=== PATIENT | female | born 1940 | race Caucasian/White ===

== ENCOUNTER 2024-07-17 14:56 | Emergency (ER) | payer MEDICARE ==
[2024-07-17 17:18] VITALS: TEMP 99.4
[2024-07-17 17:43] LABS: Appearance Cloudy (Clear); Bacteria Moderate /HPF (None Seen); Bilirubin Negative (Negative); Blood Small (Negative); Epithelial Cells Moderate /HPF (None Seen); Glucose, Urine Negative (Negative); Hyaline Casts NONE SEEN /LPF (0-2); Ketones 40 (Negative); Leukocyte Esterase Small (Negative); Nitrite Negative (Negative); Ph 5.5 (4.6-8.0); Protein,Urine Dip Negative (Negative); Specific Gravity 1.015 (1.005-1.030); Urobilinogen 0.2 mg/dL (0.2)
--- NOTE | 2024-07-17 17:44 | ERPHSYRPT ---
- History of Present Illness Time Seen by Provider: 07/17/24 17:32 Source: patient Exam Limitations: no limitations Patient Subjective Stated Complaint: PT HERE FOR PAIN TO RIGHT LOWER BACK SINCE FRIDAY, SHE DENIES ANY INJURY AND HAS NOT HAD ANY PAIN MEDS, Triage Nursing Assessment: PT ALERT, WALKED TO ROOM. GAIT STEADY. RESP EASY, SKIN W/D/P. ABD SOFT, NO EDEMA NOTED, MOVES ALL EXT WELL Physician History: Since yesterday pt has had right hip pain and right lower back pain which is worse with walking; denies trauma, numbness, fever, abdominal pain, chest pain. Allergies/Adverse Reactions: amoxicillin [From Augmentin] Allergy (Verified 07/17/24 17:08) clavulanic acid [From Augmentin] Allergy (Verified 07/17/24 17:08) Hx Tetanus, Diphtheria Vaccination/Date Given: No Hx Influenza Vaccination/Date Given: No Hx Pneumococcal Vaccination/Date Given: No Immunizations Up to Date: Yes Travel Risk - International Travel Have you traveled outside of the country in past 3 weeks: No - Emerging Infectious Disease Are you exhibiting symptoms associated with any current EIDs: No - Review of Systems Constitutional: No Fever Respiratory: No Dyspnea Cardiac: No Chest Pain Abdominal/Gastrointestinal: No Abdominal Pain, No Vomiting, No Diarrhea Musculoskeletal: Back Pain, Joint Pain (right hip) - Past Medical History Pertinent Past Medical History: No Neurological History: No Pertinent History ENT History: No Pertinent History Cardiac History: No Pertinent History Respiratory History: No Pertinent History Endocrine Medical History: No Pertinent History Musculoskeletal History: No Pertinent History GI Medical History: Polyps History: No Pertinent History Psycho-Social History: No Pertinent History Female Reproductive Disorders: No Pertinent History - Past Surgical History Past Surgical History: Yes Neuro Surgical History: No Pertinent History Cardiac: No Pertinent History Respiratory: No Pertinent History Gastrointestinal: No Pertinent History Genitourinary: No Pertinent History Musculoskeletal: No Pertinent History Female Surgical History: Tubal Ligation, Lumpectomy - Social History Smoking Status: Never smoker Exposure to second hand smoke: No Drug Use: none - Social Determinants of Health Will the patient participate in the screening: Declined to provide - Nursing Vital Signs Nursing Vital Signs: Initial Vital Signs Temperature 99.4 F 07/17/24 17:05 Pulse Rate 85 07/17/24 17:05 Respiratory Rate 18 07/17/24 17:05 Blood Pressure 181/104 07/17/24 17:05 O2 Sat by Pulse Oximetry 97 07/17/24 17:05 Pain Scale Pain Intensity [] 8 Pain Intensity 5 - Physical Exam General Appearance: alert Eyes, Ears, Nose, Throat Exam: TMs normal, pharynx normal Cardiovascular/Respiratory Exam: normal breath sounds, heart sounds normal Gastrointestinal/Abdominal Exam: soft (B.S. normal) Back Exam: other (mild right lower back tenderness) Hips Exam: right: normal range of motion (with pain), soft tissue tenderness (mild lateral tenderness) Legs Exam: right leg: normal range of motion Knees Exam: right knee: normal range of motion Ankle Exam: right ankle: normal range of motion Foot Exam: right foot: normal range of motion Neuro/Tendon Exam: normal sensation Mental Status Exam: alert, cooperative Skin Exam: warm, dry SpO2 Interpretation: normal SpO2: 97 O2 Delivery: Room Air - Course Nursing assessment & vital signs reviewed: Yes - CT Exams Pelvis CT Interpretation: Tele-radiologist Report (No evidence of acute fracture or dislocation. Sclerosis along the sacral articular srfaces of the bilateral SI joints with mild narrowing and vacuum phenomenon. Sacroiliitis may be considered. Mild degenerative changes in bilateral hip joints. See rest of report.) Lumbar Spine CT Interpretation: Tele-radiologist Report (Mild straightening of the usual lumbar lordosis likely due to muscle spasm. Degenerative changes of the lumbar spine. Suggest MRI for further evaluation if clinically warranted. See rest of report.) Ordered Tests: Active Orders 24 hr Category Date Time Status LUMBAR SPINE W/O [CT] Stat Exams 07/17/24 17:48 Completed PELVIS WITHOUT CONTRAST [CT] Stat Exams 07/17/24 17:48 Completed CULTURE,URINE Stat Lab 07/17/24 17:37 Received UA W/RFX UR CULTURE Stat Lab 07/17/24 17:37 Completed Medication Summary Discontinued Medications Generic Name Dose Route Start Last Admin Trade Name Freq PRN Reason Stop Dose Admin Ceftriaxone Sodium 1,000 mg 07/17/24 21:25 Ceftriaxone Sodium 1000 Mg Inj Vial IM 07/17/24 21:26 STAT ONE Lab/Rad Data: Laboratory Results 07/17/24 Range/Units 17:37 Urine Color Yellow (Yellow) Urine Appearance Cloudy A (Clear) Urine pH 5.5 (4.6-8.0) Ur Specific [place] 1.015 (1.005-1.030) Urine Protein Negative (Negative) Urine Glucose (UA) Negative (Negative) mg/dL Urine Ketones 40 A (Negative) Urine Blood Small A (Negative) Urine Nitrite Negative (Negative) Urine Bilirubin Negative (Negative) Urine Urobilinogen 0.2 (0.2) mg/dL Ur Leukocyte Esterase Small A (Negative) U Hyaline Cast (Auto) NONE SEEN (0-2) /LPF Urine Microscopic RBC 6-10 A (0-5) /HPF Urine Microscopic WBC 11-20 A (0-5) /HPF Ur Epithelial Cells Moderate A (None Seen) /HPF Urine Bacteria Moderate A (None Seen) /HPF Urine Culture Reflexed YES (NO) - Progress Progress: unchanged Progress Note: 07/17/24 21:35 Pt states she has tylenol and excedrin at home and does not want any other pain medications. Counseled pt/family regarding: diagnosis, need for follow-up, rad results Medical Desision Making - Diagnostic Testing Diagnostic test were ordered, analyzed, and reviewed by me: Yes Radiological Interpretation: Teleradiologist Report - Departure Departure Disposition: Home Clinical Impression: Bilateral sacroiliitis, Low back pain, Right hip pain, UTI (urinary tract infection) Condition: Stable Critical Care Time: No Referrals: RIYA BATEMAN [Primary Care Provider] - Follow up/PCP as directed Instructions: Sacroiliac Joint Pain (DC), Urinary tract infections in adults Additional Instructions: Follow up with private doctor tomorrow. Use walker for ambulation. Prescriptions: Nitrofurantoin Macro 100 mg [Macrobid 100MG Capsule] 100 mg PO BID #14 cap
[2024-07-17 19:10] VITALS: O2SAT 97
[2024-07-17 20:20] VITALS: BP 153/81; PULSE 71; RESP 19
--- NOTE | 2024-07-17 20:25 | XRAY ---
CLINICAL HISTORY: pain COMPARISON: None. TECHNIQUE: CT scan of the female pelvis was performed without the administration of intravenous contrast. Contiguous axial images were obtained from the iliac crests to the pubic symphysis. Coronal and sagittal reformatted images were also reviewed. One of the following dose reduction techniques was utilized for this exam. Automated exposure control, adjustment of the mA and/or kV according to patient size, and use of iterative reconstruction. CTDI;9/82mGY, DLP: 273.23mGy*cm. FINDINGS: Pelvic Bones: No evidence of acute fracture or dislocation. Sclerosis along the sacral articular surfaces of the bilateral SI joints, with mild narrowing and vacuum phenomena. MIld degenerative changes in the bilateral hip joints. Uterus: The uterus is normal in size and shape. No focal lesions or masses are identified. Adnexa: No adnexal masses or cysts are identified. Bladder: The urinary bladder is underfilled. Rectum and Colon: The rectum and colon are within normal limits without evidence of wall thickening or abnormal enhancement. Pelvic Soft Tissues: The pelvic soft tissues are unremarkable without evidence of mass or abnormal fluid collection. Small phleboliths. Additional Findings: Mild degenerative change in the lower lumbar spine with possible small disc bulges. IMPRESSION: 1. No evidence of acute fracture or dislocation 2. Sclerosis along the sacral articular surfaces of the bilateral SI joints with mild narrowing and vacuum phenomenon. Sacroiliitis may be considered. 3. Mild degenerative changes in the bilateral hip joints and lower lumbar spine with possible small disc bulges. Electronically Signed by: Alayna Hoover MD. (07/17/2024 20:21:09 EDT)
--- NOTE | 2024-07-17 20:27 | XRAY ---
CLINICAL HISTORY: pain COMPARISON: None. TECHNIQUE: CT non-contrast scan of lumbar spine done. Axial images were obtained with reformatted coronal and sagittal images and submitted for interpretation. One of the following dose reduction techniques were utilized for this exam: Automated exposure control, adjustment of the mA and/or kV according to patient size, use of iterative reconstruction. CTDI:7.62mGY, DLP: 216.26mGY*CM. FINDINGS: Vertebrae: Mild straightening of the usual lumbar lordosis likely due to muscle spasm. No fractures, lytic or sclerotic lesions. Mild osteopenic change. Marginal osteophytes are seen in the vertebral bodies. Sclerotic changes are seen in the lower body of L2-3 and superior body of L4. Intervertebral Discs: Narrowing of the L2-L3 and L3-L4 intervertebral disc spaces with vacuum phenomena. Multilevel disc bulges. Spinal Canal and Neural Foramina: Multilevel facet hypertrophy along with disc bulges causing neural foraminal narrowing Central spinal canal is of normal caliber with no evidence of central spinal stenosis. Facet Joints: Multilevel facet joint hypertrophy. Soft Tissues: Normal appearance of the paraspinal soft tissues. No abnormal masses, fluid collections, or signs of inflammation. Small calcification in the lower paraesophageal region and along the left diaphragm. Atherosclerotic aorta. IMPRESSION: 1. Mild straightening of the usual lumbar lordosis likely due to muscle spasm. 2. Mild osteopenic change. 3. Degenerative changes of the lumbar spine with marginal osteophytes, intervertebral disc space narrowing, facet joint hypertrophy and disc bulges causing neural foraminal narrowing. Suggest MRI for further evaluation if clinically warranted. Electronically Signed by: Alayna Hoover MD. (07/17/2024 20:22:59 EDT)
[2024-07-17] MEDS ORDERED: Rocephin 1000 MG INJ ONE (21:46)
[2024-07-17] MEDS ORDERED: XYLOCAINE 1% HCL 20 ML MDV ONE (21:47)
[2024-07-17] MEDS: Rocephin 1000 MG INJ IM ONE (21:51)
== END 2024-07-17 22:24 | disposition home or self-care (01) ==
LOC: ED 14:56
DX: M46.1 Sacroiliitis, not elsewhere classified (principal); M54.50 Low back pain, unspecified; M25.551 Pain in right hip; N39.0 Urinary tract infection, site not specified; Z79.899 Other long term (current) drug therapy
CPT/HCPCS: 72131; 72192; 81001; 87086; 96372; 99284; J0696